=== PATIENT | male | born 1995 | race Caucasian/White ===

== ENCOUNTER 2017-09-18 12:04 | Emergency (ER) | payer BC ==
[2017-09-18] MEDS ORDERED: HYDROcodone/Acetaminophen 5/325 mg Tablet ONE (12:39)
[2017-09-18 12:42] LABS: #Basophils 0.1 thou/uL (0.0-0.2); #Lymphocytes 1.9 thou/uL (1.20-3.40); #Monocytes 1.5 thou/uL (0.11-0.59); #Neutrophils 11.2 thou/uL (1.40-6.50); %Basophils 0.4 % (0.0-1.0); %Eosinophils 0.2 % (0.0-10.0); %Monocytes 10.3 % (0.0-4.0); Hematocrit 47.1 % (42.0-52.0); Mean Platelet Volume 7.2 fL (7.4-10.4); Red Blood Cell (RBC) Count 5.17 mill/uL (4.00-5.20); White Blood Cell (WBC) Count 14.7 thou/uL (4.8-10.8)
[2017-09-18 13:03] LABS: ALT (SGPT) 11 U/L (8-55); AST (SGOT) 13 U/L (10-45); Alkaline Phosphatase 70 U/L (Less than 750); Anion Gap 11 mmol/L (10-20); BUN (Urea Nitrogen) 10 mg/dL (8.4-21.0); Calc. Creatinine Clearance 0 mL/min (70-130); Calcium 9.5 mg/dL (7.8-10.44); Carbon Dioxide 27 mmol/L (22-29); Chloride 105 mmol/L (98-107); Estimated GFR-MDRD Greater than 90; Globulin 3.5 g/dL (2.4-3.5); Protein, Total 7.8 g/dL (6.0-8.3)
[2017-09-18] MEDS ORDERED: Doxycycline 100 MG CAP PO ONE (13:15)
--- NOTE | 2017-09-18 13:19 | ULT ---
SCROTAL ULTRASOUND WITH OSCAR-SCALE AND DOPPLER COLOW-FLOW IMAGING: INDICATIONS: Left hemiscrotal pain. FINDINGS: Doppler imaging reveals flow to each testis without evidence of torsion or intratesticular mass. Asy mmetric enlargement of the left epididymis is present, and the left epididymis is relatively hyperemi c. There is a 1 cm cyst of the left epididymis. There is an adjacent smaller cyst, as well, subcent imeter in size. No significant hydrocele formation. IMPRESSION: 1. No sonographic evidence of testicular torsion or mass. 2. Asymmetric increased volume and hyperemia involving the left epididymis, indicating epididymitis. Recommend clinical correlation. 3. Left epididymal cyst formation. POS: [facility]
[2017-09-18 13:39] LABS: Bilirubin Negative (Negative); Blood, Urine Small (Negative); Glucose, Urine (Dipstick) Negative (Negative); Ketone, Urine Negative (Negative); Nitrite Negative (Negative); Protein, Urine (Dipstick) 30 mg/dL (Neg-Trace)
[2017-09-18 13:42] LABS: Bacteria/HPF None Seen HPF (None Seen); Hyaline Casts/LPF 0-3 HYALINE CAST LPF (0-3 Hyaline); Squamous Epithelial None Seen HPF (0-3)
== END 2017-09-18 14:08 | disposition home or self-care (01) ==
LOC: ERS 12:04
DX: N45.1 Epididymitis (principal); F17.220 Nicotine dependence, chewing tobacco, uncomplicated
CPT/HCPCS: 76870; 80053; 81003; 81015; 85025; 87491; 87591; 93976; 96361; 96374; J0696

== ENCOUNTER 2019-12-22 19:31 | Emergency (ER) | payer BC ==
--- NOTE | 2019-12-22 19:57 | RAD ---
RIGHT CLAVICLE TWO VIEWS: 12/22/19 HISTORY: Clavicle injury. There is a nondisplaced fracture of the mid shaft of the clavicle. IMPRESSION: Nondisplaced mid shaft clavicle fracture. POS: [facility]
== END 2019-12-22 20:38 | disposition home or self-care (01) ==
LOC: ERS 19:31
DX: S42.024A Nondisplaced fracture of shaft of right clavicle, initial encounter for closed fracture (principal); J45.909 Unspecified asthma, uncomplicated; F17.210 Nicotine dependence, cigarettes, uncomplicated; Z71.6 Tobacco abuse counseling
CPT/HCPCS: 99406

== ENCOUNTER 2020-09-28 13:53 | Emergency (ER) | payer BC, SELFPAY ==
[2020-09-28] MEDS ORDERED: Lidocaine 1% (PF) 30 ML VIAL ONE (14:24)
[2020-09-28] MEDS ORDERED: cefTRIAXone\\ROCEPHIN 250 MG VIAL ONE (14:24)
[2020-09-28] MEDS ORDERED: Azithromycin 250 MG TAB ONE (14:24)
--- NOTE | 2020-09-28 15:44 | ULT ---
BILATERAL TESTICULAR ULTRASOUND WITH OSCAR SCALE, COLOR FLOW AND SPECTRAL DOPPLER IMAGIN09/28/20 HISTORY: Testicular pain. Previous history of epididymitis. FINDINGS: The right testis measures 3.3 x 4.4 x 2.1 cm and the left testis measures 2.6 x 4.6 x 2.0 cm. There i s symmetric flow to the testes bilaterally. The right epididymis is normal. There are cysts in the left epididymal head. The largest measuring 9 mm. Flow is demonstrated to the epididymi bilaterally. No hydroceles are seen. IMPRESSION: Left epididymal head cysts/spermatoceles. Otherwise unremarkable exam. POS: [facility]
[2020-09-29 20:57] LABS: Chlamydia by PCR Not Detected (NotDetected); GC by PCR DETECTED (NotDetected)
--- NOTE | 2020-10-01 15:41 | EKG ---
Test Reason : Blood Pressure : / mmHG Vent. Rate : 082 BPM Atrial Rate : 082 BPM P-R Int : 122 ms QRS Dur : 082 ms QT Int : 350 ms P-R-T Axes : 080 050 044 degrees QTc Int : 408 ms Normal sinus rhythm with sinus arrhythmia Normal ECG Confirmed by ABDELRAHMAN BAUMANN DO ([id number]), book or script editor VEDA GREER ([id number] on 10/01/2020 3:40:59 PM Referred By: Confirmed By:ABDELRAHMAN BAUMANN DO
== END 2020-09-28 16:05 | disposition home or self-care (01) ==
LOC: ERS 13:53
DX: N45.1 Epididymitis (principal); R55 Syncope and collapse; J45.909 Unspecified asthma, uncomplicated; F17.210 Nicotine dependence, cigarettes, uncomplicated
CPT/HCPCS: 76870; 87491; 87591; 93005; 93976; 96372; J0696; J2001

== ENCOUNTER 2020-12-27 13:25 | Emergency (ER) | payer SELFPAY ==
[2020-12-27] MEDS ORDERED: cefTRIAXone\\ROCEPHIN 500 MG VIAL ONE (14:10)
[2020-12-27 14:16] LABS: Bilirubin Negative (Negative); Blood, Urine Negative (Negative); Clarity Clear (Clear); Glucose, Urine (Dipstick) Normal (Negative); Ketone, Urine Negative (Negative); Leukocyte Negative Leu/uL (Negative); Nitrite Negative (Negative); Protein, Urine (Dipstick) 20 mg/dL (Neg-Trace); Specific Gravity, Urine 1.025 (1.002-1.036); Urobilinogen Normal mg/dL (Less than 2); pH, Urine 6.5 (5.0-9.0)
[2020-12-29 22:46] LABS: Chlam.trachomatis by PCR,Urine Not Detected (NotDetected)
== END 2020-12-27 14:33 | disposition home or self-care (01) ==
LOC: ERS 13:25
DX: L98.499 Non-pressure chronic ulcer of skin of other sites with unspecified severity (principal); R59.0 Localized enlarged lymph nodes; J45.909 Unspecified asthma, uncomplicated; F17.210 Nicotine dependence, cigarettes, uncomplicated
CPT/HCPCS: 81003; 87086; 87491; 87529; 87591; 96372; 99283; J0696